=== PATIENT | female | born 1980 | race Caucasian/White ===

== ENCOUNTER 2019-02-13 19:43 | Emergency (ER) | payer OTHER ==
[2019-02-13 19:56] VITALS: BP 118/81
--- NOTE | 2019-02-13 20:43 | ED Physician Documentation ---
PD HPI FEMALE - Stated complaint Stated Complaint: FEMALE /10WK OB - Chief complaint Chief Complaint: Abd Pain - History obtained from History obtained from: Patient - History of Present Illness Timing - onset: Today Timing - duration: Minutes (had just brief feeling of pelvic cramping and some rust colored discharge. No prior discharge nor vaginal irritation. She is 10 w eeks by dates.) Timing - details: Abrupt onset, Now resolved Associated symptoms: Vaginal bleeding (just the brief moment of it today, no marian oing.). 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 denies: Abdominal Pain, Vomiting, Diarrhea : denies: Dysuria, Frequency, Discharge PD PAST MEDICAL HISTORY - Past Medical History Past Medical History: No Cardiovascular: None - Allergies Allergies/Adverse Reactions: Allergies Allergy/AdvReac Type Severity Reaction Status Date / Time erythromycin base AdvReac Rash Verified 02/13/19 19:56 - Social History Does the pt smoke?: No Smoking Status: Never smoker PD ED PE NORMAL - Vitals Vital signs reviewed: Yes - General General: Alert and oriented X 3, No acute distress, Well developed/nourished - Neck Neck: Supple, no meningeal sign, No adenopathy - Cardiac Cardiac: RRR, No murmur - Respiratory Respiratory: Clear bilaterally - Abdomen Abdomen: Normal bowel sounds, Soft, Non tender, Non distended - Female Female : Deferred, Other (bedside U/S showing normal IUP, active and moving with good heart beat, and HC and CRP showing 13-14 weeks EGA. ) - Back Back: No CVA TTP - Derm Derm: Normal color, Warm and dry Results - Vitals Vitals: Vital Signs - 24 hr 02/13/19 02/13/19 19:53 21:28 Temperature 37.1 C Heart Rate 80 Respiratory 17 17 Rate Blood Pressure 118/81 H O2 Saturation 100 100 Oxygen O2 Source Room air - Labs Labs: Laboratory Tests 02/13/19 21:05 Urine Color YELLOW Urine Clarity CLEAR Urine pH 6.5 Ur Specific [place] 1.025 Urine Protein NEGATIVE Urine Glucose (UA) NEGATIVE Urine Ketones TRACE Urine Occult Blood NEGATIVE Urine Nitrite NEGATIVE Urine Bilirubin NEGATIVE Urine Urobilinogen 0.2 (NORMAL) Ur Leukocyte Esterase NEGATIVE Ur Microscopic Review NOT INDICATED Urine Culture Comments NOT INDICATED PD MEDICAL DECISION MAKING - ED course Complexity details: reviewed results, considered differential, d/w patient Departure - Departure Disposition: Home, Self Care Clinical Impression: Vaginal bleeding affecting early Condition: Stable Record reviewed to determine appropriate education?: Yes Instructions: Bleeding Early Preg Follow-Up: MIREILLE SCHAFFER [Primary Care Provider] - Comments: Stay well-hydrated. Tylenol if needed for pains. Your urine test appears normal. The baby appears fine on bedside ultrasound here. Size juares looks between 12 and 14 weeks but a more formal ultrasound would be better at the dates. Some spotting is common in early . Return if significant bleeding, fevers, cramps, discharge or other concerns. Follow-up with your EQUIPMENT LEAD next week. Discharge Date/Time: 02/13/19 21:29
[2019-02-13 21:16] LABS: BILIRUBIN,URINE NEGATIVE (NEGATIVE); GLUCOSE, URINE (UA) NEGATIVE (NEGATIVE); KETONES,URINE (UA) TRACE mg/dL (NEGATIVE); LEUKOCYTE ESTERASE, URINE NEGATIVE (NEGATIVE); NITRITE,URINE NEGATIVE (NEGATIVE); OCCULT BLOOD,URINE NEGATIVE (NEGATIVE); PH,URINE 6.5 PH (5.0-7.5); PROTEIN,URINE NEGATIVE (NEGATIVE); UROBILINOGEN,URINE 0.2 (NORMAL) E.U./dL (NORMAL)
[2019-02-13 21:17] LABS: CLARITY,URINE CLEAR (CLEAR)
== END 2019-02-13 21:29 | disposition home or self-care (01) ==
LOC: ED 19:43
DX: O20.9 Hemorrhage in early pregnancy, unspecified (principal); Z3A.12 12 weeks gestation of pregnancy
CPT/HCPCS: 81001; 81003; 87086; 99283

== ENCOUNTER 2019-03-15 16:13 | Emergency (ER) | payer OTHER ==
[2019-03-15 16:22] VITALS: BP 112/71
[2019-03-15] MEDS ORDERED: diphenhydrAMINE INJ 50 MG/ML VIAL IVP STA (16:33)
[2019-03-15] MEDS ORDERED: SODIUM CHLORIDE 0.9% 1,000 ML IV ONE (16:33)
[2019-03-15] MEDS ORDERED: METOCLOPRAMIDE 10 MG/2 ML VIAL IVP STA (16:33)
--- NOTE | 2019-03-15 16:38 | ED Physician Documentation ---
PD HPI ABD PAIN - Stated complaint Stated Complaint: DIAS/NAUSEA - Chief complaint Chief Complaint: Abd Pain - History obtained from History obtained from: Patient - History of Present Illness Timing - onset: Other (She presents at the same time as her for similar complaints. She became ill Reji night, 2 nights ago after eating at a pizza place with potentially bad food. She feels nauseous and headachy. She feels like the right side of her body is hot in the left side of her body is cold. They did not need any seafood or shellfish. She is been vomiting and retching. No fevers.) Review of Systems Constitutional: reports: Chills, Sweats. denies: Fever Nose: denies: Rhinorrhea / runny nose, Congestion Throat: denies: Sore throat Cardiac: denies: Chest pain / pressure, Palpitations Respiratory: denies: Dyspnea, Cough GI: reports: Abdominal Pain, Nausea, Vomiting. denies: Diarrhea PD PAST MEDICAL HISTORY - Past Medical History Cardiovascular: None - Present Medications Home Medications: Ambulatory Orders Medication Instructions Recorded Confirmed Metoclopramide [Reglan] 10 mg PO Q6H PRN #20 tablet 03/15/19 Pnv No.95/Ferrous Fum/Folic AC 1 tab PO DAILY 03/15/19 03/15/19 [ Caplet] - Allergies Allergies/Adverse Reactions: Allergies Allergy/AdvReac Type Severity Reaction Status Date / Time erythromycin base AdvReac Rash Verified 03/15/19 16:22 - Social History Does the pt smoke?: No Smoking Status: Never smoker PD ED PE NORMAL - Vitals Vital signs reviewed: Yes - General General: Alert and oriented X 3, No acute distress - HEENT HEENT: PERRL, EOMI, Ears normal, Moist mucous membranes, Pharynx benign - Neck Neck: Supple, no meningeal sign, No bony TTP - Cardiac Cardiac: RRR, No murmur - Respiratory Respiratory: No respiratory distress, Clear bilaterally - Abdomen Abdomen: Normal bowel sounds, Soft, Non tender, Other (Bedside ultrasound demonstrates single live intrauterine with heart rate of 140.) - Derm Derm: Normal color, Warm and dry - Extremities Extremities: No edema, No calf tenderness / cord - Neuro Neuro: Alert and oriented X 3, 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 Eye Opening: Spontaneous Motor: Obeys Commands Verbal: Oriented GCS Score: 15 Results - Vitals Vitals: Vital Signs - 24 hr 03/15/19 03/15/19 16:20 16:22 Temperature 37.0 C Heart Rate 83 Respiratory 16 Rate Blood Pressure 112/71 O2 Saturation 97 Oxygen O2 Source Room air - Labs Labs: Laboratory Tests 03/15/19 03/15/19 16:50 16:50 VBG Total Hgb 13.8 VBG Oxyhemoglobin 67 L VBG Carboxyhemoglobin 0.9 VBG Methemoglobin 0.1 Sodium 135 Potassium 3.8 Chloride 103 Carbon Dioxide 21 Anion Gap 11.0 BUN 8 Creatinine 0.5 Estimated GFR (MDRD) 140 Glucose 80 Calcium 9.8 Total Bilirubin < 0.2 L AST 15 ALT 14 Alkaline Phosphatase 66 Total Protein 7.5 Albumin 3.3 Globulin 4.2 Albumin/Globulin Ratio 0.8 L Lipase 38 PD MEDICAL DECISION MAKING - ED course ED course: This is a 38-year-old woman who presents with vomiting, headache in the setting of potential bad food exposure. Her has very similar symptoms. Carbon monoxide is considered but lab draw for same is negative. After the administration of IV fluids, Reglan, and Benadryl she felt completely better. Departure - Departure Disposition: 01 Home, Self Care Clinical Impression: Viral syndrome Qualifiers: Weeks of gestation: 17 weeks Qualified Code(s): Z3A.17 - 17 weeks gestation of Condition: Good Record reviewed to determine appropriate education?: Yes Instructions: ED Viral Syndrome Prescriptions: Metoclopramide [Reglan] 10 mg PO Q6H PRN #20 tablet PRN Reason: nausea or headache Comments: Call your doctor to arrange a follow-up appointment, make the next available appointment. In the interim, return anytime if worse or if new symptoms develop.
[2019-03-15 17:14] LABS: ALBUMIN 3.3 g/dL (3.2-5.5); ALBUMIN/GLOBULIN RATIO 0.8 (1.0-2.2); ALKALINE PHOSPHATASE 66 IU/L (42-121); ALT ALANINE AMINOTRANSFERASE 14 IU/L (10-60); AST ASPARTATE AMINOTRANSFERASE 15 IU/L (10-42); BILIRUBIN,TOTAL < 0.2 mg/dL (0.2-1.0); BUN - BLOOD UREA NITROGEN 8 mg/dL (6-20); CALCIUM 9.8 mg/dL (8.5-10.3); CARBON DIOXIDE - CO2 21 mmol/L (21-32); CHLORIDE 103 mmol/L (101-111); CREATININE 0.5 mg/dL (0.4-1.0); GFR - MDRD 140 (>89); GLUCOSE 80 mg/dL (70-100); LIPASE 38 U/L (22-51); SODIUM 135 mmol/L (135-145); TOTAL PROTEIN 7.5 g/dL (6.7-8.2)
[2019-03-15] MEDS ORDERED: HYDROcod/ACET 5/325 Prepack 4 PO STA (17:27)
[2019-03-15] MEDS ORDERED: ONDANSETRON ODT 4 MG Prepack 2 TL STA (17:27)
== END 2019-03-15 17:45 | disposition home or self-care (01) ==
LOC: ED 16:13
DX: O98.512 Other viral diseases complicating pregnancy, second trimester (principal); B34.9 Viral infection, unspecified; Z3A.17 17 weeks gestation of pregnancy
CPT/HCPCS: 36415; 80053; 82375; 83690; 96361; 96374; 96375; 99283; J1200; J2765

== ENCOUNTER 2019-07-15 23:37 | Emergency (ER) | payer OTHER ==
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
[2019-07-16] MEDS ORDERED: BACITRACIN OINT TOP STA (01:06)
[2019-07-16 01:21] VITALS: BP 118/84
== END 2019-07-16 01:23 | disposition home or self-care (01) ==
LOC: ED 23:37
DX: O99.89 Other specified diseases and conditions complicating pregnancy, childbirth and the puerperium (principal); T23.111A Burn of first degree of right thumb (nail), initial encounter; T23.151A Burn of first degree of right palm, initial encounter; T31.0 Burns involving less than 10% of body surface; T79.9XXA Unspecified early complication of trauma, initial encounter; X12.XXXA Contact with other hot fluids, initial encounter; Y93.G3 Activity, cooking and baking; Z3A.36 36 weeks gestation of pregnancy
CPT/HCPCS: 99282; A9270

== ENCOUNTER 2019-09-26 20:12 | Emergency (ER) | payer OTHER ==
[2019-09-26 20:48] LABS: BASOPHILS % (AUTO) 0.6 %; EOSINOPHILS % (AUTO) 1.1 %; HGB - HEMOGLOBIN 12.9 g/dL (12.0-16.0); LYMPHOCYTES % (AUTO) 22.9 %; MEAN CORPUSCULAR HEMOGLOBIN 27.3 pg (27.0-31.0); MEAN CORPUSCULAR HGB CONC 32.8 g/dL (32.0-36.0); MEAN CORPUSCULAR VOLUME 83.1 fL (81.0-99.0); MONOCYTES % (AUTO) 9.7 %; NEUTROPHILS % (AUTO) 64.8 %; PLT - PLATELET COUNT 328 10^3/uL (130-450); RED BLOOD COUNT 4.73 10^6/uL (4.20-5.40); RED CELL DISTRIBUTION WIDTH 17.5 % (12.0-15.0)
[2019-09-26 21:00] LABS: BILIRUBIN,URINE NEGATIVE (NEGATIVE); GLUCOSE, URINE (UA) NEGATIVE (NEGATIVE); KETONES,URINE (UA) TRACE mg/dL (NEGATIVE); LEUKOCYTE ESTERASE, URINE MODERATE (NEGATIVE); NITRITE,URINE POSITIVE (NEGATIVE); OCCULT BLOOD,URINE LARGE (NEGATIVE); PROTEIN,URINE 100 mg/dL (NEGATIVE); UROBILINOGEN,URINE 0.2 (NORMAL) E.U./dL (NORMAL)
[2019-09-26 21:02] LABS: ALBUMIN 3.8 g/dL (3.2-5.5); BILIRUBIN,TOTAL 0.4 mg/dL (0.2-1.0); CALCIUM 9.3 mg/dL (8.5-10.3); CREATININE 0.6 mg/dL (0.4-1.0); TOTAL PROTEIN 7.6 g/dL (6.7-8.2)
[2019-09-26 21:02] LABS: CLARITY,URINE HAZY (CLEAR)
[2019-09-26 21:03] LABS: HCG UR QUAL NEGATIVE
[2019-09-26 21:05] LABS: ABNORMAL LYMPHS % (MANUAL) 0 %
[2019-09-26 21:10] LABS: BACTERIA,URINE Many /HPF (None Seen); SQUAMOUS EPITHELIAL CELL,UR NONE SEEN (<= Few); WBC CLUMPS,URINE PRESENT
[2019-09-26 21:26] LABS: BAND NEUTROPHILS % (MANUAL) 2 %; BASOPHILS # (MANUAL) 0.6 10^3/uL (0-0.1); BASOPHILS % (MANUAL) 2 %; EOSINOPHILS # (MANUAL) 0.3 10^3/uL (0-0.7); LYMPHOCYTES # (MANUAL) 6.4 10^3/uL (1.5-3.5); LYMPHOCYTES % (MANUAL) 23 %; MONOCYTES # (MANUAL) 1.4 10^3/uL (0.0-1.0)
[2019-09-26 21:34] LABS: PLATELET ESTIMATE, MANUAL NORMAL (130-450,000) (NORMAL); PLATELET MORPHOLOGY NORMAL APPEARANCE (NORMAL); RBC MORPHOLOGY (MULTIPLE) NORMAL APPEARANCE (NORMAL)
[2019-09-26 21:36] LABS: DIFFERENTIAL COMMENT MANUAL DIFFERENTIAL
[2019-09-27] MEDS ORDERED: cefTRIAXone 1 GM in SODIUM CHLORIDE 0.9% MINIBAG 100 ML IV STA (00:28)
[2019-09-27] MEDS ORDERED: KETOROLAC 30 MG/ML VIAL IVP STA (00:28)
[2019-09-27] MEDS ORDERED: IOVERSOL 320 100 ML VIAL IVP ONE (01:16)
--- NOTE | 2019-09-27 01:24 | ED Physician Documentation ---
PD HPI FEMALE - Stated complaint Stated Complaint: FEMALE GI, ABD PX - Chief complaint Chief Complaint: Abd Pain - History obtained from History obtained from: Patient - History of Present Illness Timing - onset: Yesterday Timing - details: Gradual onset, Waxing and waning Pain level max: 10 Pain level max: 10 Associated symptoms: Back pain, Dysuria, Urinary frequency. No: Fever Contributing factors: No: Recently seen: Not recently seen - Additional information Additional information: c/o frequent urination and burning dysuria since yesterday with suprapubic pressure, gradually becoming associated with increasing right flank and right back pain. Denies fever, chills, sweats. Review of Systems Constitutional: denies: Fever, Chills, Sweats GI: reports: Abdominal Pain (suprapubic pain and right flank/back pain, but also some RLQ pain). 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 : None HEENT: None Psych: None Musculoskeletal: None Derm: None - Past Surgical History Past Surgical History: No - Present Medications Home Medications: Ambulatory Orders Medication Instructions Recorded Confirmed Pnv No.95/Ferrous Fum/Folic AC 1 tab PO DAILY 03/15/19 03/15/19 [ Caplet] Nitrofurantoin Monohyd/M-Cryst 100 mg PO BID #19 capsule 09/27/19 [Macrobid 100 mg Capsule] - Allergies Allergies/Adverse Reactions: Allergies Allergy/AdvReac Type Severity Reaction Status Date / Time iron Allergy Emesis Verified 09/26/19 20:24 erythromycin base AdvReac Rash Verified 09/26/19 20:24 - Social History Does the pt smoke?: No Smoking Status: Never smoker Does the pt drink ETOH?: No Does the pt have substance abuse?: No - Immunizations Immunizations are current?: Yes - POLST Patient has POLST: No PD ED PE NORMAL - Vitals Vital signs reviewed: Yes - General General: Alert and oriented X 3, Well developed/nourished, Other (appears uncomfortable) - HEENT HEENT: Moist mucous membranes - Neck Neck: Supple, no meningeal sign - Cardiac Cardiac: RRR, No murmur - Respiratory Respiratory: No respiratory distress, Clear bilaterally - Abdomen Abdomen: Soft, Non distended, Other (mild RLQ tenderness without rebound or guarding) - Derm Derm: Normal color, Warm and dry, No rash PD ED PE EXPANDED - Back Back: CVA TTP right. No: Vertebral tenderness, Soft tissue tenderness Results - Vitals Vitals: Oxygen O2 Source Room air - Labs Labs: Microbiology 09/26/19 20:51 Urine Culture - Final Urine,Clean Catch Escherichia Coli Laboratory Tests 09/26/19 09/26/19 09/26/19 20:40 20:40 20:51 WBC 28.0 H RBC 4.73 Hgb 12.9 Hct 39.3 MCV 83.1 MCH 27.3 MCHC 32.8 RDW 17.5 H Plt Count 328 MPV 10.0 Neut # (Auto) Not Reportable Lymph # (Auto) Not Reportable [place] # (Auto) Not Reportable Eos # (Auto) Not Reportable Baso # (Auto) Not Reportable Absolute Nucleated RBC Not Reportable Total Counted 100 Band Neuts % (Manual) 2 Abnorm Lymph % (Manual) 0 Nucleated RBC % Not Reportable Neutrophils # (Manual) 19.3 H Lymphocytes # (Manual) 6.4 H Monocytes # (Manual) 1.4 H Eosinophils # (Manual) 0.3 Basophils # (Manual) 0.6 H Differential Comment MANUAL DIFFERENTIAL Manual Slide Review Indicated Platelet Estimate NORMAL (130-450,000) Platelet Morphology NORMAL APPEARANCE RBC Morph Micro Appear NORMAL APPEARANCE Sodium 139 Potassium 3.7 Chloride 106 Carbon Dioxide 23 Anion Gap 10.0 BUN 17 Creatinine 0.6 Estimated GFR (MDRD) 112 Glucose 112 H Calcium 9.3 Total Bilirubin 0.4 AST 25 ALT 29 Alkaline Phosphatase 101 Total Protein 7.6 Albumin 3.8 Globulin 3.8 Albumin/Globulin Ratio 1.0 Lipase 34 Urine Color YELLOW Urine Clarity HAZY Urine pH 6.0 Ur Specific Anthony 1.025 Urine Protein 100 H Urine Glucose (UA) NEGATIVE Urine Ketones TRACE Urine Occult Blood LARGE H Urine Nitrite POSITIVE H Urine Bilirubin NEGATIVE Urine Urobilinogen 0.2 (NORMAL) Ur Leukocyte Esterase MODERATE H Urine RBC 11-25 H Urine WBC >25 H Urine WBC Clumps PRESENT Ur Squamous Epith Cells NONE SEEN Urine Bacteria Many H Ur Microscopic Review INDICATED Urine Culture Comments INDICATED Urine HCG, Qual 09/26/19 20:51 WBC RBC Hgb Hct MCV MCH MCHC RDW Plt Count MPV Neut # (Auto) Lymph # (Auto) [place] # (Auto) Eos # (Auto) Baso # (Auto) Absolute Nucleated RBC Total Counted Band Neuts % (Manual) Abnorm Lymph % (Manual) Nucleated RBC % Neutrophils # (Manual) Lymphocytes # (Manual) Monocytes # (Manual) Eosinophils # (Manual) Basophils # (Manual) Differential Comment Manual Slide Review Platelet Estimate Platelet Morphology RBC Morph Micro Appear Sodium Potassium Chloride Carbon Dioxide Anion Gap BUN Creatinine Estimated GFR (MDRD) Glucose Calcium Total Bilirubin AST ALT Alkaline Phosphatase Total Protein Albumin Globulin Albumin/Globulin Ratio Lipase Urine Color Urine Clarity Urine pH Ur Specific Anthony 1.025 Urine Protein Urine Glucose (UA) Urine Ketones Urine Occult Blood Urine Nitrite Urine Bilirubin Urine Urobilinogen Ur Leukocyte Esterase Urine RBC Urine WBC Urine WBC Clumps Ur Squamous Epith Cells Urine Bacteria Ur Microscopic Review Urine Culture Comments Urine HCG, Qual NEGATIVE - Rads (name of study) CT A/P Radiology: Prelim report reviewed, See rad report PD MEDICAL DECISION MAKING - ED course Complexity details: reviewed results, re-evaluated patient, considered differential, d/w patient ED course: appears to be in mild painful discomfort but nontoxic in general appearance. UA c/w UTI and HPI and exam are most suggestive of right pyelonephritis. WBC of 28. Plan was to perform CT A/P with IV contrast, but RN was unable to establish IV and patient refused further attempts. CT A/P performed with contrast, and this demonstrates right periureteral stranding, no evidence of appendicitis ("normal appendix" per radiologist's interpretation). Despite the significant leukocytosis, she is afebrile in ED and reports significant improvement with IM toradol. Given macrobid and rx for same. I recommended IM rocephin, which she refused. She also declined prescription analgesia Departure - Departure Disposition: 01 Home, Self Care Clinical Impression: Pyelonephritis Condition: Good Instructions: ED Kidney Infec Female Prescriptions: Nitrofurantoin Monohyd/M-Cryst [Macrobid 100 mg Capsule] 100 mg PO BID #19 capsule Comments: Follow up with your primary care provider within 48 hours for reevaluation. Discharge Date/Time: 09/27/19 02:50
[2019-09-27] MEDS ORDERED: KETOROLAC 60 MG/2 ML VIAL IM STA (01:48)
[2019-09-27] MEDS ORDERED: cefTRIAXone 1 GM VIAL IM STA (01:49)
[2019-09-27] MEDS ORDERED: LIDOCAINE 1% 2 ML VIAL MC ONE (01:49)
--- NOTE | 2019-09-27 01:53 | CT Report ---
Reason: right lower quadrant and right flank pain Procedure Date: 09/27/2019 Accession Number: [id number] / [id number] Procedure: CT - Abdomen/Pelvis WO CPT Code: Final Report FULL RESULT: EXAM: CT ABDOMEN AND PELVIS (CT KUB) EXAM DATE: 09/27/2019 01:36 AM. CLINICAL HISTORY: Right lower quadrant and right flank pain. COMPARISONS: None. TECHNIQUE: Routine axial helical CT imaging was performed through the abdomen and pelvis without IV contrast. Reconstructions: Coronal and sagittal. In accordance with CT protocol optimization, one or more of the following dose reduction techniques were utilized for this exam: automated exposure control, adjustment of mA and/or KV based on patient size, or use of iterative reconstructive technique. FINDINGS: Lung Bases: No acute abnormality. Breast implants incompletely imaged. Right Kidney/Ureter: No stones, hydronephrosis, or hydroureter. No perinephric fat stranding. Mild periureteral stranding. Left Kidney/Ureter: No stones, hydronephrosis, or hydroureter. No perinephric fat stranding. Other Solid Organs: Status post splenectomy. Liver, pancreas and adrenal glands are unremarkable on noncontrast CT. Gallbladder/Bile Ducts: Unremarkable. Peritoneal Cavity: No free fluid, free air or dahiana adenopathy. Bowel is grossly unremarkable. Appendix is normal. Pelvic Organs: Bladder is decompressed which limits evaluation. No bladder calculi. Uterus and adnexa are unremarkable on noncontrast CT. Vasculature: Unremarkable. Other: Small fat-containing umbilical hernia. IMPRESSION: 1. No urinary tract stones or obstruction. 2. Mild right periureteral stranding which may be due to infection or inflammation. Correlate clinically and with urinalysis to assess for ascending UTI. 3. Bladder is underdistended which limits evaluation. Correlate with urinalysis. 4. Normal appendix. RADIA
[2019-09-27] MEDS ORDERED: IBUPROFEN 800 MG TABLET PO STA (02:24)
[2019-09-27] MEDS ORDERED: NITROFURANTOIN MACRO 100 MG CAPSULE PO STA (02:24)
[2019-09-27 02:51] VITALS: BP 124/83
== END 2019-09-27 02:50 | disposition home or self-care (01) ==
LOC: ED 20:12
DX: N12 Tubulo-interstitial nephritis, not specified as acute or chronic (principal)
CPT/HCPCS: 36415; 74176; 80053; 81001; 81025; 83690; 85025; 87086; 87181; 99284; A9270; 81003

== ENCOUNTER 2020-08-26 07:11 | Day surgery (SDC) | payer OTHER ==
[2020-08-26] MEDS ORDERED: LACTATED RINGERS 1,000 ML IV ONE ×2 (07:14→10:32)
[2020-08-26 07:36] LABS: HCG UR QUAL NEGATIVE
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
[2020-08-26] MEDS ORDERED: NALOXONE 0.4 MG/ML VIAL IVP PRN (08:09)
[2020-08-26] MEDS ORDERED: ACETAMINOPHEN 1,000 MG/100 ML 100 ML IV ONE (08:09)
[2020-08-26] MEDS ORDERED: ATROPINE ABBOJECT 1 MG/10 ML SYRINGE IVP PRN (08:09)
[2020-08-26] MEDS ORDERED: MORPHINE 2 MG/ML CARPUJECT IVP PRN (08:09)
[2020-08-26] MEDS ORDERED: METOCLOPRAMIDE 10 MG/2 ML VIAL IVP PRN (08:09)
[2020-08-26] MEDS ORDERED: HYDROmorphone 0.5 MG/0.5 ML SYRINGE IVP PRN (08:09)
[2020-08-26] MEDS ORDERED: fentaNYL 100 MCG/2 ML VIAL IVP PRN (08:09)
[2020-08-26] MEDS ORDERED: ePHEDrine 50 MG/ML VIAL IVP PRN (08:09)
[2020-08-26] MEDS ORDERED: LACTATED RINGERS 1,000 ML IV SCH (09:00)
[2020-08-26] MEDS ORDERED: BUPIVACAINE 0.25%-EPI 1:200000 PF 30 ML VIAL ONE (09:08)
[2020-08-26] MEDS ORDERED: DEXAMETHASONE 4 MG/ML VIAL IVP ONE (09:10)
[2020-08-26] MEDS ORDERED: GLYCOPYRROLATE 1 MG/5 ML VIAL IVP ONE (09:10)
[2020-08-26] MEDS ORDERED: PROPOFOL 200 MG/20 ML VIAL IVP ONE (09:10)
[2020-08-26] MEDS ORDERED: KETOROLAC 30 MG/ML VIAL IVP ONE (09:10)
[2020-08-26] MEDS ORDERED: NEOSTIGMINE 1 MG/1 ML 10 ML MDV IVP ONE (09:10)
[2020-08-26] MEDS ORDERED: fentaNYL 100 MCG/2 ML VIAL IVP ONE (09:10)
[2020-08-26] MEDS ORDERED: ROCURONIUM 50 MG/5 ML VIAL IVP ONE (09:10)
[2020-08-26] MEDS ORDERED: MIDAZOLAM 2 MG/2 ML VIAL IVP ONE (09:10)
[2020-08-26] MEDS ORDERED: BUPIVACAINE 0.25%-EPI 1:200000 PF 30 ML VIAL SUBQ ONE (10:01)
--- NOTE | 2020-08-26 10:42 | OPERATIVE REPORT ---
Operative Report - General Procedure Date: 08/26/20 Planned Procedure: Operative Laparoscopy, bilateral salpingectomy Pre-Op Diagnosis: Undesired Fertility Procedure Performed: Operative laparoscopy, bilateral salpingectomy Post Op Diagnosis: Undesired Fertility - Procedure Note Primary Surgeon: Axel Secondary Surgeon: Man Anesthesia Provider: Dorinda Anesthesia Technique: General ET tube, Local Pathology: 1. Right fallopian tube 2. Left fallopian tube IV Fluids (mL): 1,200 (Ringer's Lactate) Estimated Blood Loss (mL): 3 Urine Output (mL): 200 Indications: 40 year old female with undesired fertility, desiring sterilization. She was counseled and consented for the procedure. Findings: Exam under anesthesia: Uterus anteverted, normal size, shape, and contour. No adnexal masses. Laparoscopy: Normal uterus, right fallopian tube with subcentimeter paratubal cyst near fimbria otherwise normal bilateral fallopian tubes, normal bilateral ovaries. Normal anterior and posterior culs-de-sac. Normal liver edge and gallbladder edge. Appendix not visualized. No abdominal or pelvic adhesions. Complications: None - Other Other Information/Narrative: OPERATIVE PROCEDURE: The patient was taken to the operating room where general anesthesia was performed without any complications. The patient was prepared and draped in the usual sterile fashion in the dorsal lithotomy position with yellow fin stirrups. The bladder was drained with a straight catheter. A bivalve speculum was placed in the vagina and a Hulka uterine manipulator was inserted into the uterus as a means of uterine manipulation. The speculum was removed from the vagina. Attention was turned to the patient's abdomen where local anesthesia injection was used followed by a 5 mm vertical skin incision was made at the inferior portion of the umbilicus. A Veress needle was inserted and initial gas pressure was noted to be 5mm Hg. The abdomen was insufflated with CO2 gas with maximum pressure set to 15mm Hg and the Veress needle was removed. A 5 mm trocar and sleeve were placed into the patient's abdomen under direct visualization without any complications. Survey of the patient's abdomen and pelvis was notable for the above findings. Two additional ports were inserted into the right lower quadrant and left lower quadrant under direct visualization in similar fashion. The left fallopian tube was followed from the cornua to the fimbria. A Ligasure was used to transect the left fallopian tube at the mesosalpinx, ensuring hemostasis. The right fallopian tube was removed in a similar fastion. Final inspection of the abdomen and pelvis revealed excellent hemostasis. All instruments were removed from the abdomen. The abdomen was decompressed and all trocars were removed. The skin incisions were closed with subcuticular 4-0 Monocryl and covered with Dermabond. The Hulka uterine manipulator was removed from the vagina and the cervix was hemostatic with pressure. All instruments were removed from the vagina. All sponge, sharp, and instrument counts were correct x2. The patient was extubated in the room and was taken to the PACU in stable condition.
[2020-08-26] MEDS ORDERED: METOCLOPRAMIDE 10 MG/2 ML VIAL ONE (11:05)
[2020-08-26] MEDS ORDERED: SCOPOLAMINE PATCH TOP SCH (11:29)
--- NOTE | 2020-08-26 12:10 | ANESTHESIA POST OP EVALUATION ---
Anesthesia Post Eval - Post Anesthesia Eval Vitals: Last Vital Signs Temp 36.5 C 08/26/20 11:08 Pulse 86 08/26/20 11:33 Resp 16 08/26/20 11:33 BP 120/70 08/26/20 11:33 Pulse Ox 95 08/26/20 11:33 CV Function Including HR & BP: positive: Stable Pain Control: positive: Satisfactory (States mild ache in side.) Nausea & Vomiting: positive: Negative (Was given reglan and scope patch with improvement) Mental Status: positive: Baseline Respiratory Status: Airway Patent Hydration Status: Satisfactory (Taking PO fluids) Anesthesia Complications: positive: None (Awake and alert.)
[2020-08-26 12:21] VITALS: BP 116/62
[2020-08-26] MEDS ORDERED: ONDANSETRON 4 MG/2 ML VIAL IVP PRN (12:49)
[2020-08-26] MEDS ORDERED: ONDANSETRON 4 MG/2 ML VIAL ONE (12:52)
== END 2020-08-26 07:12 | disposition home or self-care (01) ==
LOC: SDS 07:11
PROVIDERS: ATTEND Obstetrics & Gynecology
PROC: 0UT74ZZ Resection of Bilateral Fallopian Tubes, Percutaneous Endoscopic Approach (ICD-10-PCS; principal; 2020-08-26 08:45)
DX: Z30.2 Encounter for sterilization (principal)
CPT/HCPCS: 81025

== ENCOUNTER 2020-08-31 14:36 | Emergency (ER) | payer OTHER ==
[2020-08-31] MEDS ORDERED: HYDROcod/ACETAM 5/325 MG TABLET PO STA (15:13)
--- NOTE | 2020-08-31 15:13 | ED Physician Documentation ---
History of Present Illness - Stated complaint Stated Complaint: TOOTHE PAIN - Chief complaint Chief Complaint: Heent - History obtained from History obtained from: Patient - Additonal information Additional information: She had a recent surgery, tubal ligation. Thinks that her tooth was injured in the anesthetic process. Now has severe pain from a left mandibular molar with fever last night. 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 ) /LOADING CHECKER: Breast implants - Present Medications Home Medications: Ambulatory Orders Medication Instructions Recorded Confirmed Hydrocodone/Acetaminophen 1 - 2 tab PO Q6H PRN #10 tablet 08/31/20 [Hydrocodone-Acetamin 5-325 mg] Penicillin V Potassium 500 mg PO Q6HR #40 tablet 08/31/20 - Allergies Allergies/Adverse Reactions: Allergies Allergy/AdvReac Type Severity Reaction Status Date / Time iron Allergy Rash Verified 08/31/20 15:07 erythromycin base AdvReac Severe Anaphylaxis Verified 08/31/20 15:07 ondansetron [From Zofran] AdvReac Anxiety Verified 08/31/20 15:07 chili pepper Allergy Anaphylaxis Uncoded 08/31/20 15:07 - Social History Does the pt smoke?: No Smoking Status: Never smoker Does the pt drink ETOH?: No Does the pt have substance abuse?: No - Immunizations Immunizations are current?: Yes - POLST Patient has POLST: No PD ED PE NORMAL - Vitals Vital signs reviewed: Yes - General General: Alert and oriented X 3 - HEENT HEENT: Other (She has a large cavity which is tender from the last 2 mandibular molar. No facial swelling or trismus. No sublingual edema.) - Neck Neck: Supple, no meningeal sign, No bony TTP - Neuro Neuro: Alert and oriented X 3, Normal speech Results - Vitals Vitals: Vital Signs - 24 hr 08/31/20 14:57 Temperature 37.5 C Heart Rate 81 Respiratory 18 Rate Blood Pressure 148/99 H O2 Saturation 99 Oxygen O2 Source Room air Departure - Departure Disposition: 01 Home, Self Care Clinical Impression: Dental abscess Condition: Good Record reviewed to determine appropriate education?: Yes Instructions: ED Cavity Dental Prescriptions: Penicillin V Potassium 500 mg PO Q6HR #40 tablet Hydrocodone/Acetaminophen [Hydrocodone-Acetamin 5-325 mg] 1 - 2 tab PO Q6H PRN #10 tablet PRN Reason: Pain Comments: It is very important that you follow-up with a dentist. When it comes to dental problems like yours, the emergency department can only offer a short-term solution to your long-term problem. A couple of low cost options for dental care include: [facility] in [place], calls [phone] for an appointment Or [facility] in [place], call [phone] for an appointment.
[2020-08-31 15:34] VITALS: BP 152/102
== END 2020-08-31 15:38 | disposition home or self-care (01) ==
LOC: ED 14:36
DX: K04.7 Periapical abscess without sinus (principal)
CPT/HCPCS: 99281; 99282; A9270

== ENCOUNTER 2020-10-11 09:17 | Emergency (ER) | payer OTHER ==
[2020-10-11] MEDS: FAMOTIDINE 20 MG TABLET PO STA (10:39)
[2020-10-11] MEDS: CHERRY SYRUP 10 ML UDC PO ONE (10:40)
[2020-10-11] MEDS: diphenhydrAMINE 25 MG CAPSULE PO STA (10:40)
[2020-10-11] MEDS: DEXAMETHASONE 10 MG/ML VIAL PO STA (10:40)
[2020-10-11] MEDS: KETOROLAC 15 MG/ML VIAL IVP STA (13:52)
[2020-10-11] MEDS: LACTATED RINGERS 1,000 ML IV STA ×2 (13:53→16:39)
[2020-10-11 14:29] LABS: BASOPHILS # (AUTO) 0.1 10^3/uL (0.0-0.1); BASOPHILS % (AUTO) 0.4 %; HGB - HEMOGLOBIN 14.6 g/dL (12.0-16.0); LYMPHOCYTES # (AUTO) 1.8 10^3/uL (1.5-3.5); LYMPHOCYTES % (AUTO) 8.5 %; MEAN CORPUSCULAR HEMOGLOBIN 29.3 pg (27.0-31.0); MEAN CORPUSCULAR HGB CONC 33.7 g/dL (32.0-36.0); MEAN CORPUSCULAR VOLUME 86.9 fL (81.0-99.0); MEAN PLATELET VOLUME 10.6 fL (7.9-10.8); MONOCYTES # (AUTO) 0.2 10^3/uL (0.0-1.0); MONOCYTES % (AUTO) 0.7 %; NEUTROPHILS # (AUTO) 19.4 10^3/uL (1.5-6.6); NEUTROPHILS % (AUTO) 89.7 %; PLT - PLATELET COUNT 505 10^3/uL (130-450); RED BLOOD COUNT 4.98 10^6/uL (4.20-5.40); RED CELL DISTRIBUTION WIDTH 14.7 % (12.0-15.0); WHITE BLOOD COUNT 21.7 x10^3/uL (4.8-10.8)
[2020-10-11 14:36] LABS: ALBUMIN 4.3 g/dL (3.2-5.5); BILIRUBIN,TOTAL 0.6 mg/dL (0.2-1.0); CALCIUM 9.4 mg/dL (8.5-10.3); CREATININE 0.5 mg/dL (0.4-1.0); TOTAL PROTEIN 8.5 g/dL (6.7-8.2)
[2020-10-11] MEDS ORDERED: IOVERSOL 320 100 ML VIAL IVP ONE (15:14)
[2020-10-11 15:19] LABS: PLATELET ESTIMATE, MANUAL NORMAL (130-450,000) (NORMAL); PLATELET MORPHOLOGY NORMAL APPEARANCE (NORMAL); RBC MORPHOLOGY (MULTIPLE) NORMAL APPEARANCE (NORMAL)
[2020-10-11] MEDS: LACTATED RINGERS 500 ML IV ONE (15:46)
[2020-10-11] MEDS: CLINDAMYCIN 900 MG/50 ML 50 ML IV STA (15:59)
[2020-10-11] MEDS: IOVERSOL 320 100 ML VIAL IVP ONE (16:12)
--- NOTE | 2020-10-11 16:16 | CT Report ---
PROCEDURE: MAXILLOFACIAL W INDICATIONS: r/o abscess CONTRAST: IV CONTRAST: Optiray 320 ml: 100 PO CONTRAST: *NO PO CONTRAST TECHNIQUE: After the administration of intravenous contrast, 3.0 mm axial sections acquired from the mid-neck to the frontal sinuses, with coronal reformatting. For radiation dose reduction, the following was use d: automated exposure control, adjustment of mA and/or kV according to patient size. COMPARISON: None. FINDINGS: Image quality: Excellent. Soft tissues: No suspicious masses or abscess cavities. Numerous mildly enlarged reactive bilateral l ymph nodes, in the submandibular regions as well as in the anterior cervical chains. Enlarged left to nsillar pillar. Vascular: Visualized vascular structures appear patent throughout. Bony vascular foramina and canal s appear normal. Bones: Facial bones appear intact, without fractures, erosions, or destruction. Visualized portions of the skull base and auditory canals also appear normal. Sinuses: Paranasal sinuses are aerated without fluid levels, mucosal thickening, or mucoceles. Mast oid air cells are aerated. IMPRESSION: Findings may potentially represent tonsillitis involving the left tonsillar pillar without abscess fo rmation. Associated reactive lymphadenopathy. Reviewed by: Rome Angulo MD on 10/11/2020 4:15 PM PST Approved by: Rome Angulo MD on 10/11/2020 4:15 PM PST Station ID: [id number]
[2020-10-11 18:20] VITALS: BP 143/95
--- NOTE | 2020-10-11 18:27 | ED Physician Documentation ---
History of Present Illness - Stated complaint Stated Complaint: JAW PX/SWELLING - Chief complaint Chief Complaint: Heent - History obtained from History obtained from: Patient - Additonal information Additional information: 40-year-old woman with Past medical history of poor dentition presents with left lower molar avulsed tooth that has become infected for the past 4 days, causing lower jaw pain, swelling, nonradiating aching constant moderate, not relieved with oral penicillin. She also reports that she developed hives on her trunk and legs today and stop the penicillin as a result. No other system involvement, however she did have an episode of lightheadedness yesterday accompanied by 1 episode of nonbloody nonbilious nausea vomiting. At present she is not nauseous, has no fever, no chest pain shortness of breath throat pain headache or other symptoms. Review of Systems Ten Systems: 10 systems reviewed and negative Constitutional: denies: Fever, Chills Throat: reports: Dental pain / toothache Cardiac: denies: Chest pain / pressure Respiratory: denies: Dyspnea, Cough, Wheezing GI: denies: Abdominal Pain, Nausea, Vomiting Skin: reports: Rash PD PAST MEDICAL HISTORY - Past Medical History Cardiovascular: None Respiratory: None Neuro: None Endocrine/Autoimmune: None GI: None SIDE STITCHER: None : None HEENT: None Psych: Anxiety Musculoskeletal: None Derm: None - Past Surgical History Past Surgical History: No General: Splenectomy /SIDE STITCHER: Tubal ligation, Breast implants - Present Medications Home Medications: Ambulatory Orders Medication Instructions Recorded Confirmed Hydrocodone/Acetaminophen 1 - 2 tab PO Q6H PRN #10 tablet 08/31/20 [Hydrocodone-Acetamin 5-325 mg] Penicillin V Potassium 500 mg PO Q6HR #40 tablet 08/31/20 Ciprofloxacin [Cipro] 750 mg PO Q12H 10 Days #20 tablet 10/11/20 - Allergies Allergies/Adverse Reactions: Allergies Allergy/AdvReac Type Severity Reaction Status Date / Time iron Allergy Rash Verified 10/11/20 09:22 pepper (genus Capsicum) Allergy Anaphylaxis Verified 10/11/20 15:27 erythromycin base AdvReac Severe Anaphylaxis Verified 10/11/20 09:22 ondansetron [From Zofran] AdvReac Anxiety Verified 10/11/20 09:22 - Social History Does the pt smoke?: No Smoking Status: Never smoker Does the pt drink ETOH?: No Does the pt have substance abuse?: No - Immunizations Immunizations are current?: Yes - POLST Patient has POLST: No PD ED PE NORMAL - Vitals Vital signs reviewed: Yes - General General: Alert and oriented X 3 - HEENT HEENT: Atraumatic, PERRL, EOMI, Other (Poor dentition. Right lower molar avulsed with perigingival swelling. Submandibular swelling, mildly tender to palpation. No trismus. Tolerating secretions. Oropharynx benign) - Neck Neck: Supple, no meningeal sign - Cardiac Cardiac: RRR - Respiratory Respiratory: No respiratory distress, Clear bilaterally - Abdomen Abdomen: Non tender, Non distended - Female Female : Deferred - Rectal Rectal: Deferred - Back Back: No CVA TTP - Derm Derm: Normal color, Other (Raised erythematous rash to trunk, back, abdomen and bilateral arms with mild excoriation.) - Extremities Extremities: No edema - Neuro Neuro: Alert and oriented X 3 - Psych Psych: Normal mood, Normal affect Results - Vitals Vitals: Vital Signs - 24 hr 10/11/20 10/11/20 10/11/20 09:22 11:43 13:33 Temperature 36.7 C 36.6 C Heart Rate 91 99 98 Respiratory 16 20 16 Rate Blood Pressure 125/83 H 133/93 H 137/92 H O2 Saturation 97 98 101 H 10/11/20 10/11/20 15:13 18:20 Temperature 37.1 C Heart Rate 100 86 Respiratory 18 18 Rate Blood Pressure 130/93 H 143/95 H O2 Saturation 100 100 Oxygen O2 Source Room air - Labs Labs: Laboratory Tests 10/11/20 10/11/20 10/11/20 13:55 13:55 15:39 WBC 21.7 H RBC 4.98 Hgb 14.6 Hct 43.3 MCV 86.9 MCH 29.3 MCHC 33.7 RDW 14.7 Plt Count 505 H MPV 10.6 Neut # (Auto) 19.4 H Lymph # (Auto) 1.8 [place]les # (Auto) 0.2 Eos # (Auto) 0.0 Baso # (Auto) 0.1 Absolute Nucleated RBC 0.00 Nucleated RBC % 0.0 Manual Slide Review Indicated Platelet Estimate NORMAL (130-450,000) Platelet Morphology NORMAL APPEARANCE RBC Morph Micro Appear NORMAL APPEARANCE Sodium 138 Potassium 3.9 Chloride 102 Carbon Dioxide 23 Anion Gap 13.0 BUN 12 Creatinine 0.5 Estimated GFR (MDRD) 138 Glucose 103 H Lactic Acid 1.0 Calcium 9.4 Total Bilirubin 0.6 AST 15 ALT 16 Alkaline Phosphatase 84 Total Protein 8.5 H Albumin 4.3 Globulin 4.2 Albumin/Globulin Ratio 1.0 PD MEDICAL DECISION MAKING - ED course Complexity details: reviewed results, re-evaluated patient, d/w patient, d/w brand sales consultant [place] [facility] [place] course: 40-year-old woman presented with dental infection causing facial swelling, refractory to oral penicillin. Also with allergic reaction to penicillin that was responsive to conservative therapy in the emergency department. I did a CT max[place] [facility] [place] and also had Dr. Astorga see her in the emergency room. He is recommending that she follow-up in clinic intake ciprofloxacin 750 mg twice daily for 10 days. Strict return precautions given to patient Departure - Departure Disposition: 01 Home, Self Care Clinical Impression: Tonsillitis, Dental infection, Facial swelling, Jaw pain, Pain due to dental caries Condition: Good Instructions: ED Abscess Dental Prescriptions: Ciprofloxacin [Cipro] 750 mg PO Q12H 10 Days #20 tablet Comments: You have been seen in the emergency department for a dental infection. Follow- up with oral maxillofacial surgery Dr. Channing Astorga. Discharge Date/Time: 10/11/20 19:11
== END 2020-10-11 19:11 | disposition home or self-care (01) ==
LOC: ED 09:17
DX: S03.2XXA Dislocation of tooth, initial encounter (principal); L50.0 Allergic urticaria; T36.0X5A Adverse effect of penicillins, initial encounter; J03.90 Acute tonsillitis, unspecified; K04.7 Periapical abscess without sinus
CPT/HCPCS: 36415; 70487; 80053; 83605; 85025; 87040; 96365; 96366; 96375; 99284; A9270; J7120; Q9967